=== PATIENT | female | born 1950 | race Caucasian/White ===

== ENCOUNTER → 2018-01-04 | Outpatient (CLI) | payer OTHER ==
[~2018-01-04] MED LIST: ALBU90OI; ALBU90OI61 INH; AMIT50 PO; ASPI325 PO; ASPI81CH PO; ASPI81EC PO; ATOR40TA PO; BUPR150ER; BUPR150ER PO; BUSP10 PO; Budeprion Xl300 MG PO; CIPR500 PO; CLON.5; CLON1 PO; CRUTCH2 USE; CRUTCH4 USE; Cholestyramine378 GM PO; ESTR2 PO; ESTROVAN; FENO145 PO; FLUO20 PO; FLUSAL5005; FLUSAL5005 INH; FLUT.05NI; FOLI400 PO; FURO40 PO; HYDACE5; HYDACE5 PO; HYDCHL25 PO; Klonopin1 MG PO; LISI5; LISI5 PO; METO25 PO; METO25ER PO; MONT10T; MULVITMIND PO; NAPR500 PO; NIFE30ER PO; Nitrostat0.3 MG SL; OXYACE5T PO; PHENA200 PO; Prilosec Otc20 MG PO; Pristiq100 MG PO; Prozac40 MG PO; REXULTI1 MG PO; ROSU10TA PO; RXHYDACE PO; RXOXYACE PO; Singulair10 MG PO; TOVIAZ; TRAM50 PO; VENL150ER PO; VENL75ER
[2018-01-04 14:08] LABS: BASOPHILS ABSOLUTE AUTO 0.03 K/mm3 (0.00-0.23); BASOPHILS PERCENT AUTO 0 % (0-2); EOSINOPHILS PERCENT AUTO 1 % (0-6); Hematocrit 41.5 % (33.0-51.0); Hemoglobin 13.5 g/dL (11.5-16.0); IMMATURE GRAN ABSOLUTE AUTO 0.03 K/mm3 (0.00-0.10); IMMATURE GRAN PERCENT AUTO 0 % (0-1); LYMPHOCYTES PERCENT AUTO 30 % (21-46); MONOCYTES ABSOLUTE AUTO 0.73 K/mm3 (0.16-1.47); MONOCYTES PERCENT AUTO 7 % (4-13); Mean Corpuscular HGB 28.9 pg (26.0-34.0); Mean Corpuscular HGB Conc 32.5 g/dL (31.5-36.5); Mean Corpuscular Volume 89 fL (80-100); Mean Platelet Volume 11.1 fL (9.1-12.4); NEUTROPHILS ABSOLUTE AUTO 6.71 K/mm3 (1.96-9.15); NEUTROPHILS PERCENT AUTO 62 % (41-73); Platelet Count 316 K/mm3 (150-400); RDW Coefficient Variation 13.9 % (11.7-14.2); RDW Standard Deviation 45.1 fL (35.1-46.3); Red Blood Cell Count 4.67 M/mm3 (3.80-5.20)
[2018-01-04 14:20] LABS: Alanine Aminotransfer (ALT/SGP 30 U/L (12-78); Albumin, Blood 3.7 g/dL (3.4-5.0); Albumin/Globulin Ratio 1.1 (0.8-1.8); Alk Phos 84 U/L (40-126); Anion Gap 8 mmol/L (6-16); Aspartate Aminotrans (AST/SGOT 22 U/L (12-37); Bilirubin, Total 0.4 mg/dL (0.1-1.0); Blood Urea Nitrogen 10 mg/dL (8-24); Bun/Creatinine Ratio 12.7 (12.0-20.0); CO2, Blood 28 mmol/L (21-32); Calcium, Blood 8.8 mg/dL (8.5-10.1); Chloride, Blood 104 mmol/L (98-108); Creatinine, Blood 0.79 mg/dL (0.40-1.00); Globulin, Blood 3.5 g/dL (2.2-4.0); Glomerular Filtration Rate >60 (60-); Glucose, Blood 109 mg/dL (70-99); Potassium, Blood 3.9 mmol/L (3.5-5.5); Sodium, Blood 140 mmol/L (136-145); Total Protein, Blood 7.2 g/dL (6.4-8.2)
[2018-01-04 14:23] LABS: Troponin I <0.017 ng/mL (0.000-0.040)
== END | disposition home or self-care (01) ==
LOC: LAB EV 14:04 → LAB SHORT 14:04
PROVIDERS: Physician Assistant
DX: R07.89 Other chest pain (principal)
CPT/HCPCS: 80053; 84484; 85025

== ENCOUNTER 2018-01-05 16:29 | Emergency (ER) | payer OTHER ==
[~2018-01-05] VITALS: Ht 167.6 cm; Wt 103.0 kg
[2018-01-05 16:52] LABS: BASOPHILS ABSOLUTE AUTO 0.07 K/mm3 (0.00-0.23); BASOPHILS PERCENT AUTO 1 % (0-2); EOSINOPHILS ABSOLUTE AUTO 0.15 K/mm3 (0.00-0.68); EOSINOPHILS PERCENT AUTO 1 % (0-6); Hematocrit 42.5 % (33.0-51.0); Hemoglobin 13.4 g/dL (11.5-16.0); IMMATURE GRAN ABSOLUTE AUTO 0.02 K/mm3 (0.00-0.10); IMMATURE GRAN PERCENT AUTO 0 % (0-1); LYMPHOCYTES ABSOLUTE AUTO 4.59 K/mm3 (0.84-5.20); LYMPHOCYTES PERCENT AUTO 39 % (21-46); MONOCYTES ABSOLUTE AUTO 1.06 K/mm3 (0.16-1.47); MONOCYTES PERCENT AUTO 9 % (4-13); Mean Corpuscular HGB 28.7 pg (26.0-34.0); Mean Corpuscular HGB Conc 31.5 g/dL (31.5-36.5); Mean Corpuscular Volume 91 fL (80-100); Mean Platelet Volume 10.7 fL (9.1-12.4); NEUTROPHILS ABSOLUTE AUTO 6.02 K/mm3 (1.96-9.15); NEUTROPHILS PERCENT AUTO 51 % (41-73); Platelet Count 314 K/mm3 (150-400); RDW Coefficient Variation 13.6 % (11.7-14.2); RDW Standard Deviation 45.6 fL (35.1-46.3); Red Blood Cell Count 4.67 M/mm3 (3.80-5.20); White Blood Cell Count 11.91 K/mm3 (4.00-11.30)
[2018-01-05 17:19] LABS: Alanine Aminotransfer (ALT/SGP 26 U/L (12-78); Albumin, Blood 3.5 g/dL (3.4-5.0); Alk Phos 84 U/L (50-136); Anion Gap 7 mmol/L (6-16); Aspartate Aminotrans (AST/SGOT 19 U/L (12-37); Bilirubin, Total 0.4 mg/dL (0.1-1.0); Blood Urea Nitrogen 9 mg/dL (8-24); Bun/Creatinine Ratio 12.4 (12.0-20.0); CO2, Blood 27 mmol/L (21-32); Calcium, Blood 8.6 mg/dL (8.5-10.1); Chloride, Blood 104 mmol/L (98-108); Creatinine, Blood 0.73 mg/dL (0.40-1.00); Globulin, Blood 3.4 g/dL (2.2-4.0); Glomerular Filtration Rate >60 (60-); Glucose, Blood 99 mg/dL (70-99); Potassium, Blood 3.8 mmol/L (3.5-5.5); Sodium, Blood 138 mmol/L (136-145); Total Protein, Blood 6.9 g/dL (6.4-8.2)
== END 2018-01-05 19:40 | disposition short-term general hospital (02) ==
LOC: ER 16:29
PROVIDERS: Emergency Medicine
DX: R51 Headache (principal); I10 Essential (primary) hypertension; I25.2 Old myocardial infarction; E78.5 Hyperlipidemia, unspecified; Z88.0 Allergy status to penicillin; Z88.2 Allergy status to sulfonamides; Z88.8 Allergy status to other drugs, medicaments and biological substances; Z88.1 Allergy status to other antibiotic agents; Z79.899 Other long term (current) drug therapy; Z79.82 Long term (current) use of aspirin; Z79.51 Long term (current) use of inhaled steroids; Z87.891 Personal history of nicotine dependence
CPT/HCPCS: 36415; 70450; 80053; 85025; 96374; 96375; 99285-25; J1100; J2405; J3010

== ENCOUNTER → 2018-06-07 | Outpatient (CLI) | payer OTHER ==
[2018-06-07 08:02] LABS: BASOPHILS ABSOLUTE AUTO 0.05 K/mm3 (0.00-0.23); BASOPHILS PERCENT AUTO 1 % (0-2); EOSINOPHILS ABSOLUTE AUTO 0.11 K/mm3 (0.00-0.68); EOSINOPHILS PERCENT AUTO 1 % (0-6); Hematocrit 42.3 % (33.0-51.0); Hemoglobin 13.8 g/dL (11.5-16.0); IMMATURE GRAN ABSOLUTE AUTO 0.02 K/mm3 (0.00-0.10); IMMATURE GRAN PERCENT AUTO 0 % (0-1); LYMPHOCYTES ABSOLUTE AUTO 2.83 K/mm3 (0.84-5.20); LYMPHOCYTES PERCENT AUTO 32 % (21-46); MONOCYTES ABSOLUTE AUTO 0.54 K/mm3 (0.16-1.47); MONOCYTES PERCENT AUTO 6 % (4-13); Mean Corpuscular HGB 28.8 pg (26.0-34.0); Mean Corpuscular HGB Conc 32.6 g/dL (31.5-36.5); Mean Corpuscular Volume 88 fL (80-100); Mean Platelet Volume 11.2 fL (9.1-12.4); NEUTROPHILS ABSOLUTE AUTO 5.31 K/mm3 (1.96-9.15); NEUTROPHILS PERCENT AUTO 60 % (41-73); Platelet Count 287 K/mm3 (150-400); RDW Standard Deviation 42.2 fL (35.1-46.3); Red Blood Cell Count 4.79 M/mm3 (3.80-5.20); White Blood Cell Count 8.86 K/mm3 (4.00-11.30)
[2018-06-07 08:16] LABS: Albumin, Blood 3.2 g/dL (3.4-5.0); Albumin/Globulin Ratio 0.9 (0.8-1.8); Bilirubin, Total 0.4 mg/dL (0.1-1.0); Bun/Creatinine Ratio 9.5 (12.0-20.0); Calcium, Blood 8.4 mg/dL (8.5-10.1); Creatinine, Blood 0.95 mg/dL (0.40-1.00); Globulin, Blood 3.4 g/dL (2.2-4.0); Potassium, Blood 3.9 mmol/L (3.5-5.5); Total Protein, Blood 6.6 g/dL (6.4-8.2)
== END | disposition home or self-care (01) ==
LOC: LAB SHORT 07:58 → LAB EV 07:58
PROVIDERS: General Practice
DX: R31.9 Hematuria, unspecified (principal)
CPT/HCPCS: 80053; 85025; 87086

== ENCOUNTER 2018-06-20 09:57 | Day surgery (SDC) | payer OTHER ==
[~2018-06-20] VITALS: Ht 167.6 cm; Wt 97.1 kg
--- NOTE | 2018-06-20 10:47 | NUR ---
Ambulatory in Day Surgery History, Chart, Medications and Allergies reviewed before start of procedure.Lungs clear T/O to Auscultation. Patient confirms NPO status and agrees with scheduled surgery. Patient States Post-Procedure ride home has been arranged.
--- NOTE | 2018-06-20 11:18 | NUR ---
06/20/18 1118 Diego Sewell History, Chart, Medications and Allergies reviewed before start of procedure.MONITOR INTACT WITH CONTINUOUS PULSE OXIMETRY AND INTERMITTENT BP.3-LEAD EKG REVIEWED WITH PHYSICIAN PRIOR TO START OF PROCEDURE.O2 VIA N/C INTACT THROUGHOUT SEDATION/PROCEDURE. Patient confirms NPO status and agrees with scheduled surgery.PATIENT DETERMINED TO BE ASA APPROPRIATE FOR PROPOFOL SEDATION PRIOR TO START OF PROCEDURE BY DR. BUCK.
--- NOTE | 2018-06-20 12:23 | NUR ---
Patient up to Ambulate independently. Gait steady. Discharge instructions reviewed with patient. Patient verbalizes understanding. Copy given to patient to take home. Patient States Post-Procedure ride home has been arranged. Discharged via wheelchair to private car for ride home.
== END 2018-06-20 12:00 | disposition home or self-care (01) ==
LOC: ORSCMMR 09:57 → ORD 11:00 → ORSCMMR 12:00
PROVIDERS: Internal Medicine Gastroenterology
PROC: 0DBM8ZX Excision of Descending Colon, Via Natural or Artificial Opening Endoscopic, Diagnostic (ICD-10-PCS; principal; 2018-06-20 11:00)
PROC: 0DBP8ZX Excision of Rectum, Via Natural or Artificial Opening Endoscopic, Diagnostic (ICD-10-PCS; principal; 2018-06-20 11:00)
PROC: 0DBL8ZX Excision of Transverse Colon, Via Natural or Artificial Opening Endoscopic, Diagnostic (ICD-10-PCS; principal; 2018-06-20 11:00)
PROC: 0DBE8ZX Excision of Large Intestine, Via Natural or Artificial Opening Endoscopic, Diagnostic (ICD-10-PCS; principal; 2018-06-20 11:00)
DX: R19.7 Diarrhea, unspecified (principal); Z86.010 Personal history of colon polyps; D12.3 Benign neoplasm of transverse colon; K63.5 Polyp of colon; K62.1 Rectal polyp; K52.89 Other specified noninfective gastroenteritis and colitis; E11.9 Type 2 diabetes mellitus without complications; I25.10 Atherosclerotic heart disease of native coronary artery without angina pectoris; I25.2 Old myocardial infarction; Z79.899 Other long term (current) drug therapy; Z79.82 Long term (current) use of aspirin; F17.210 Nicotine dependence, cigarettes, uncomplicated
CPT/HCPCS: 82947; J7120

== ENCOUNTER → 2018-08-27 | Outpatient (CLI) | payer OTHER | END | disposition home or self-care (01) | LOC: LAB SHORT 14:19 → LAB 14:19 | DX: N20.0 Calculus of kidney (principal) | CPT/HCPCS: 81050 ==

== ENCOUNTER → 2019-02-14 | Outpatient (CLI) | payer OTHER | END | disposition home or self-care (01) | LOC: LAB SHORT 17:35 → LAB 17:35 | DX: R30.9 Painful micturition, unspecified (principal) | CPT/HCPCS: 87077; 87086; 87186 ==

== ENCOUNTER → 2019-02-27 | Outpatient (CLI) | payer OTHER ==
[2019-03-05 14:07] LABS: BRUSHITE 1.01 ratio (0.00-3.00); CALCIUM OXALATE 2.48 ratio (0.00-6.00); CALCIUM, URINE 7.9 mg/dL (Not Estab.); CHLORIDE URINE 132 (110-250); CITRIC ACID (CITRATE) 94 mg/L (Not Estab.); CITRIC ACID(CITRATE) 188 mg/24 hr (320-1240); CREATININE, URINE 48.7 mg/dL (Not Estab.); MAGNESIUM, URINE 1.8 mg/dL (Not Estab.); MONOSODIUM URATE 2.02 ratio (0.00-4.00); OSMOLALITY, URINE 334 (300-900); SODIUM, URINE 150 (39-258); SODIUM, URINE 75 mmol/L (Not Estab.); STRUVITE 0.01 ratio (0.00-1.00); URIC ACID 0.53 ratio (0.00-1.20); URINE VOLUME 2000 mL/24 hr (600-1600); URINE VOLUME (PRESERVATIVE) 2000 mL/24 hr (600-1600)
== END | disposition home or self-care (01) ==
LOC: LAB 11:47 → LAB SHORT 11:47
PROVIDERS: Urology
DX: N20.0 Calculus of kidney (principal)
CPT/HCPCS: 81003; 81050; 82131; 82140; 82340; 82436; 82507; 82570; 83735; 83935; 83945; 84105; 84133; 84300; 84392; 84560

== ENCOUNTER 2020-08-03 21:17 | Emergency (ER) | payer OTHER ==
[~2020-08-03] VITALS: Ht 167.6 cm; Wt 89.8 kg
[~2020-08-03 21:17] MED LIST changes: +ENAL2.5 PO; +MELATONIN5 M1 PO; +OMEP20ER PO; +Percocet 5-3251 EACH PO; +REXULTI2 MG PO
== END 2020-08-03 21:30 | disposition home or self-care (01) ==
LOC: ER 21:17
DX: T16.2XXA Foreign body in left ear, initial encounter (principal); I10 Essential (primary) hypertension; E78.00 Pure hypercholesterolemia, unspecified; Z88.2 Allergy status to sulfonamides; Z79.899 Other long term (current) drug therapy; Z87.891 Personal history of nicotine dependence; Z88.8 Allergy status to other drugs, medicaments and biological substances
CPT/HCPCS: 69200; 99282-25

== ENCOUNTER → 2020-11-16 | Outpatient (CLI) | payer OTHER ==
[2020-11-16 11:41] LABS: Creatinine, Urine Random 97.8 mg/dL (27.00-270.00); Microalb/Creat Ratio UR, Rand 12.781 mg/g (0.000-30.000); Microalbumin, Random Urine 12.5 mg/L (0.000-20.000)
== END | disposition home or self-care (01) ==
LOC: LAB SHORT 08:10 → LAB 08:10
PROVIDERS: Student in an Organized Health Care Education/Training Program
DX: E11.40 Type 2 diabetes mellitus with diabetic neuropathy, unspecified (principal)
CPT/HCPCS: 82043; 82570

== ENCOUNTER 2021-08-10 18:22 | Inpatient (IN) | payer OTHER ==
[~2021-08-10] VITALS: Ht 167.6 cm; Wt 92.5 kg
[~2021-08-10 18:22] MED LIST changes: +CLON2 PO; -FLUSAL5005 INH; +FLUT1DIS5 INH
[2021-08-10 19:09] LABS: BASOPHILS ABSOLUTE AUTO 0.05 K/mm3 (0.00-0.23); BASOPHILS PERCENT AUTO 0 % (0-2); EOSINOPHILS ABSOLUTE AUTO 0.01 K/mm3 (0.00-0.68); EOSINOPHILS PERCENT AUTO 0 % (0-6); Hematocrit 38.6 % (33.0-51.0); Hemoglobin 12.3 g/dL (11.5-16.0); IMMATURE GRAN ABSOLUTE AUTO 0.08 K/mm3 (0.00-0.10); IMMATURE GRAN PERCENT AUTO 1 % (0-1); LYMPHOCYTES ABSOLUTE AUTO 1.66 K/mm3 (0.84-5.20); LYMPHOCYTES PERCENT AUTO 10 % (21-46); MONOCYTES ABSOLUTE AUTO 0.79 K/mm3 (0.16-1.47); MONOCYTES PERCENT AUTO 5 % (4-13); Mean Corpuscular HGB 28.5 pg (26.0-34.0); Mean Corpuscular HGB Conc 31.9 g/dL (31.5-36.5); Mean Corpuscular Volume 89 fL (80-100); Mean Platelet Volume 10.8 fL (9.1-12.4); NEUTROPHILS ABSOLUTE AUTO 13.88 K/mm3 (1.96-9.15); NEUTROPHILS PERCENT AUTO 84 % (41-73); Platelet Count 258 K/mm3 (150-400); RDW Coefficient Variation 13.6 % (11.7-14.2); RDW Standard Deviation 44.8 fL (35.1-46.3); Red Blood Cell Count 4.32 M/mm3 (3.80-5.20); White Blood Cell Count 16.47 K/mm3 (4.00-11.30)
[2021-08-10 19:40] LABS: Albumin, Blood 3.1 g/dL (3.4-5.0); Albumin/Globulin Ratio 0.8 (0.8-1.8); Bilirubin, Total 1.2 mg/dL (0.1-1.0); Bun/Creatinine Ratio 16.5 (12.0-20.0); Calcium, Blood 8.4 mg/dL (8.5-10.1); Creatinine, Blood 0.97 mg/dL (0.40-1.00); Globulin, Blood 3.8 g/dL (2.2-4.0); Potassium, Blood 3.4 mmol/L (3.5-5.5); Total Protein, Blood 6.9 g/dL (6.4-8.2)
[2021-08-10 23:12] LABS: Source, Urine Clean Catch
[2021-08-10 23:23] LABS: Bilirubin, Urine Neg (Neg); Blood, Urine 4+ (Neg); Glucose Qualitative, Urine Neg (Neg); Ketones, Urine Neg (Neg); Leukocyte Esterase, Urine 3+ (Neg); Nitrite, Urine Pos (Neg); Protein, Urine 2+ (Neg); Urobilinogen, Urine 1+ (Normal)
[2021-08-10 23:28] LABS: Appearance, Urine Hazy (Clear); Color, Urine Yellow (P-Yellow)
[2021-08-10 23:44] LABS: Bacteria Many /hpf; Red Blood Cells, Urine 0-2 /hpf (0-2); Squamous Epithelial Cells Few /hpf (Few); White Blood Cells, Urine TNTC /hpf (0-5)
[2021-08-11 05:49] LABS: BASOPHILS ABSOLUTE AUTO 0.04 K/mm3 (0.00-0.23); BASOPHILS PERCENT AUTO 0 % (0-2); EOSINOPHILS ABSOLUTE AUTO 0.01 K/mm3 (0.00-0.68); EOSINOPHILS PERCENT AUTO 0 % (0-6); Hematocrit 35.5 % (33.0-51.0); Hemoglobin 11.3 g/dL (11.5-16.0); IMMATURE GRAN ABSOLUTE AUTO 0.06 K/mm3 (0.00-0.10); IMMATURE GRAN PERCENT AUTO 1 % (0-1); LYMPHOCYTES ABSOLUTE AUTO 0.99 K/mm3 (0.84-5.20); LYMPHOCYTES PERCENT AUTO 8 % (21-46); MONOCYTES ABSOLUTE AUTO 1.28 K/mm3 (0.16-1.47); MONOCYTES PERCENT AUTO 10 % (4-13); Mean Corpuscular HGB Conc 31.8 g/dL (31.5-36.5); Mean Corpuscular Volume 88 fL (80-100); Mean Platelet Volume 11.1 fL (9.1-12.4); NEUTROPHILS ABSOLUTE AUTO 10.49 K/mm3 (1.96-9.15); NEUTROPHILS PERCENT AUTO 82 % (41-73); Platelet Count 228 K/mm3 (150-400); RDW Coefficient Variation 13.7 % (11.7-14.2); RDW Standard Deviation 44.3 fL (35.1-46.3); Red Blood Cell Count 4.03 M/mm3 (3.80-5.20); White Blood Cell Count 12.87 K/mm3 (4.00-11.30)
[2021-08-11 06:11] LABS: Alanine Aminotransfer (ALT/SGP 24 U/L (12-78); Albumin, Blood 2.7 g/dL (3.4-5.0); Albumin/Globulin Ratio 0.8 (0.8-1.8); Alk Phos 75 U/L (50-136); Anion Gap 8 mmol/L (6-16); Aspartate Aminotrans (AST/SGOT 20 U/L (12-37); Bilirubin, Total 1.3 mg/dL (0.1-1.0); Blood Urea Nitrogen 14 mg/dL (8-24); CO2, Blood 23 mmol/L (21-32); Chloride, Blood 108 mmol/L (98-108); Creatinine, Blood 0.87 mg/dL (0.40-1.00); Globulin, Blood 3.3 g/dL (2.2-4.0); Glomerular Filtration Rate >60 (60-); Glucose, Blood 106 mg/dL (70-99); Sodium, Blood 139 mmol/L (136-145)
--- NOTE | 2021-08-11 11:48 | NUR ---
MD CALL BLOOD SUGAR 66. PT BEING GIVEN JUICE AND SNACK. DR LORENZO INFORMED OF BG.
[2021-08-11] MEDS ORDERED: Mirapex1 MG PO (12:16)
[2021-08-11] MEDS ORDERED: CARBIDOPA-LEVO1 EA15 PO (12:17)
[2021-08-11] MEDS ORDERED: DESV50 PO (12:18)
[2021-08-11] MEDS ORDERED: REXULTI2 MG PO (12:19)
[2021-08-11] MEDS ORDERED: Ventolin/Prove6.7 GM INH (13:08)
[2021-08-11] MEDS ORDERED: Zestril30 MG PO (13:11)
--- NOTE | 2021-08-11 18:27 | NUR ---
MS TURNER WAS ADMITTED TO MEDICAL FLOOR FROM THE ER JUST BEFORE NOON TODAY. SHE IS ALERT, ORIENTATED X 4. SHE HAS HISTORY OF ASTHMA AND SLEEP APNEA. ON ROOM AIR, NO RESP DISTRESS. NO C/O PAIN. ABDOMEN ROUND, SOFT, NONTENDER. SHE SAID SHE HAS CHRONIC DIARRHEA, SHE HAS HAD A COUPLE OF SMALL FORMED STOOLS SINCE ADMISSION. SHE HAS PARKINSONS DISEASE WITH PRONOUNCED TREMORS. OYSTERMAN PADS PLACED ON HER BACK RATHER THAN HER CHEST TO FURNACE CHARGING MACHINE OPERATOR A BETTER WAVE FORM. PT IN SR/ST WITH PVCS PER MAGNET VALVE ASSEMBLER. TRAMMELL CATHETER IN PLACE FOR URINARY RETENTION. SCD ON. PIV TO L AND R A/C, NS IVF INFUSING TO R A/C. PT FEBRILE, TYLENOL PO GIVEN. DR LORENZO AWARE AND SHE HAS BEEN IN TO SEE PT. PT HAS HAD RECENT FALLS AT HOME AND IS WEAK. SHE SAID SHE NEEDS A LOT OF ASSISTANCE TO GET UP OUT OF BED. SEEN BY PHYSICAL THERAPY (OT ALSO CAME TO SEE HER) AND MESSAGE LEFT FOR IT GENERALIST TO EVALUATE HER FOR INCREASED HOME CARE NEEDS, POSSIBLE HOME CARE NURSES. BED LOW. CALL LIGHT IN REACH. FAMILY HAS BEEN WITH HER TODAY.
--- NOTE | 2021-08-12 02:16 | NUR ---
PT TRANSFERRED TO 331 AT 0200 FROM 345. REPORT TAKEN FROM DAVID PATHAK. PT TUCKED IN, FLUIDS CHANGED, AND TRAMMELL BAG EMPTIED. PT HAS CALL LIGHT WITHIN REACH AND STS SHE IS READY TO GO BACK TO SLEEP. LIGHT TURNED OUT AND WILL CONTINUE TO MONITOR.
[2021-08-12 05:24] LABS: Hematocrit 37.3 % (33.0-51.0); Hemoglobin 11.5 g/dL (11.5-16.0); Mean Corpuscular HGB 28.1 pg (26.0-34.0); Mean Corpuscular HGB Conc 30.8 g/dL (31.5-36.5); Mean Corpuscular Volume 91 fL (80-100); Mean Platelet Volume 10.8 fL (9.1-12.4); Platelet Count 219 K/mm3 (150-400); RDW Coefficient Variation 13.5 % (11.7-14.2); Red Blood Cell Count 4.09 M/mm3 (3.80-5.20); White Blood Cell Count 7.55 K/mm3 (4.00-11.30)
[2021-08-12 05:59] LABS: Albumin, Blood 2.6 g/dL (3.4-5.0); Anion Gap 9 mmol/L (6-16); Blood Urea Nitrogen 16 mg/dL (8-24); Bun/Creatinine Ratio 18.7 (12.0-20.0); CO2, Blood 20 mmol/L (21-32); Calcium, Blood 7.9 mg/dL (8.5-10.1); Chloride, Blood 108 mmol/L (98-108); Creatinine, Blood 0.85 mg/dL (0.40-1.00); Glomerular Filtration Rate >60 (60-); Glucose, Blood 92 mg/dL (70-99); Phosphorus, Blood 2.6 mg/dL (2.5-4.9); Sodium, Blood 137 mmol/L (136-145)
--- NOTE | 2021-08-12 18:30 | NUR ---
SHIFT SUMMARY: PT ADMITTED YESTERDAY WITH PYELONEPHRITIS AND SEPSIS. SHE IS A/O X4. THE PATIENT IS ON ROOM AIR AND IS IN NO RESPIRATORY DISTRESS. SHE HAS PARKINSON'S DISEASE WITH PRONOUNCED TREMORS IN BOTH HANDS. TELEMETRY STICKERS WERE PLACED ON HER BACK VS. CHEST DUE TO HER TREMORS. TELEMETRY HAS SINCE BEEN DC'D PER ORDER. THE PATIENT HAD A TRAMMELL CATHETER IN PLACE FOR RETENTION, BUT THE TRAMMELL CATHETER HAS BEEN REMOVED PER ORDER. PATIENT IS STAND BY ASSIST AND AMBULATES TO THE BATHROOM WITH FWW. BED IN LOW POSITION. CALL LIGHT IN REACH. FAMILY HAS BEEN IN TO VISIT WITH PATIENT TODAY.
--- NOTE | 2021-08-13 05:57 | NUR ---
SHIFT SUMMARY A/O X4. AMBULATION W/ SBA AND FWW. VITAL SIGNS STABLE, NO ACUTE CHANGES OVER NIGHT. PT TOLERATING PO INTAKE, NO N/V REPORTED. VOIDING AND PASSING STOOLS. PLEASANT AND COOPERATIVE WITH CARE, WILL CONTINUE TO MONITOR AND REPORT TO ONCOMING RN.
[2021-08-13] MEDS ORDERED: VISBIOME 112.51 EACH PO (11:07)
[2021-08-13] MEDS ORDERED: LEVO750 PO (11:09)
== END 2021-08-13 12:07 | disposition home health service (06) | DRG 872 ==
LOC: ER 18:22 → ERHOLD 08-11 00:39 → ER 08-11 00:39 → MEDS 08-11 00:39 → ERHOLD 08-11 04:53 → MEDS 08-11 10:56
PROVIDERS: Family Medicine; Internal Medicine; Student in an Organized Health Care Education/Training Program; ADMIT Internal Medicine
DX: A41.51 Sepsis due to Escherichia coli [E. coli] (principal); N10 Acute pyelonephritis; E87.1 Hypo-osmolality and hyponatremia; E87.6 Hypokalemia; I25.10 Atherosclerotic heart disease of native coronary artery without angina pectoris; Z95.5 Presence of coronary angioplasty implant and graft; Z95.1 Presence of aortocoronary bypass graft; E11.9 Type 2 diabetes mellitus without complications; I10 Essential (primary) hypertension; G20 Parkinson's disease; F32.9 Major depressive disorder, single episode, unspecified; F41.9 Anxiety disorder, unspecified; K21.9 Gastro-esophageal reflux disease without esophagitis; R65.20 Severe sepsis without septic shock; Z79.899 Other long term (current) drug therapy; I25.2 Old myocardial infarction; Z90.49 Acquired absence of other specified parts of digestive tract; Z88.2 Allergy status to sulfonamides; Z88.1 Allergy status to other antibiotic agents; Z88.0 Allergy status to penicillin; Z88.8 Allergy status to other drugs, medicaments and biological substances; Z79.82 Long term (current) use of aspirin; J44.9 Chronic obstructive pulmonary disease, unspecified
CPT/HCPCS: 36415; 51702; 51798; 74177; 80053; 80069; 81001; 82947; 83605; 85025; 85027; 87040; 87077; 87086; 87186; 94640; 94664; 94760; 94762; 97110; 97116; 97162; 97166; 97530; 97535; 99285-25; A9270; J0744; J1650; J1956; J7030; Q9967

== ENCOUNTER → 2022-03-16 | Outpatient (CLI) | payer OTHER ==
[~2022-03-16] MED LIST changes: +CARBIDOPA-LEVO1 EA15 PO; +DESV50 PO; +LEVO750 PO; +Mirapex1 MG PO; +VISBIOME 112.51 EACH PO; +Ventolin/Prove6.7 GM INH; +Zestril30 MG PO
[2022-03-16 14:17] LABS: Source, Urine Clean Catch
[2022-03-16 15:35] LABS: Bacteria Many /hpf; Red Blood Cells, Urine 0-2 /hpf (0-2); Squamous Epithelial Cells Few /hpf (Few)
== END | disposition home or self-care (01) ==
LOC: LAB 14:16 → LAB SHORT 14:16
PROVIDERS: Student in an Organized Health Care Education/Training Program
DX: R32 Unspecified urinary incontinence (principal)
CPT/HCPCS: 81015; 87077; 87086; 87186

== ENCOUNTER 2022-11-07 08:25 | Emergency (ER) | payer OTHER ==
[~2022-11-07] VITALS: Ht 167.6 cm; Wt 96.2 kg
[2022-11-07 08:53] LABS: BASOPHILS ABSOLUTE AUTO 0.06 K/mm3 (0.00-0.23); BASOPHILS PERCENT AUTO 1 % (0-2); EOSINOPHILS ABSOLUTE AUTO 0.18 K/mm3 (0.00-0.68); EOSINOPHILS PERCENT AUTO 2 % (0-6); Hematocrit 39.9 % (33.0-51.0); Hemoglobin 13.1 g/dL (11.5-16.0); IMMATURE GRAN ABSOLUTE AUTO 0.03 K/mm3 (0.00-0.10); IMMATURE GRAN PERCENT AUTO 0 % (0-1); LYMPHOCYTES ABSOLUTE AUTO 1.98 K/mm3 (0.84-5.20); LYMPHOCYTES PERCENT AUTO 25 % (21-46); MONOCYTES ABSOLUTE AUTO 0.57 K/mm3 (0.16-1.47); MONOCYTES PERCENT AUTO 7 % (4-13); Mean Corpuscular HGB 28.1 pg (26.0-34.0); Mean Corpuscular HGB Conc 32.8 g/dL (31.5-36.5); Mean Corpuscular Volume 86 fL (80-100); Mean Platelet Volume 11.2 fL (9.1-12.4); NEUTROPHILS ABSOLUTE AUTO 5.14 K/mm3 (1.96-9.15); NEUTROPHILS PERCENT AUTO 64 % (41-73); Platelet Count 306 K/mm3 (150-400); RDW Coefficient Variation 14.6 % (11.7-14.2); RDW Standard Deviation 45.2 fL (35.1-46.3); Red Blood Cell Count 4.66 M/mm3 (3.80-5.20); White Blood Cell Count 7.96 K/mm3 (4.00-11.30)
[2022-11-07 09:11] LABS: Albumin, Blood 3.7 g/dL (3.4-5.0); Albumin/Globulin Ratio 1.2 (0.8-1.8); Bilirubin, Total 0.7 mg/dL (0.1-1.0); Bun/Creatinine Ratio 20.6 (12.0-20.0); Calcium, Blood 9.2 mg/dL (8.5-10.1); Creatinine, Blood 0.92 mg/dL (0.40-1.00); Globulin, Blood 3.2 g/dL (2.2-4.0); Potassium, Blood 4.9 mmol/L (3.5-5.5); Total Protein, Blood 6.9 g/dL (6.4-8.2)
[2022-11-07 10:53] VITALS: BP 101/67
== END 2022-11-07 11:31 | disposition home or self-care (01) ==
LOC: ER 08:25
PROVIDERS: Physician Assistant
DX: R55 Syncope and collapse (principal); Z88.2 Allergy status to sulfonamides; Z88.1 Allergy status to other antibiotic agents; Z88.0 Allergy status to penicillin; Z88.8 Allergy status to other drugs, medicaments and biological substances; Z79.899 Other long term (current) drug therapy; Z79.82 Long term (current) use of aspirin; I10 Essential (primary) hypertension; I25.10 Atherosclerotic heart disease of native coronary artery without angina pectoris; E78.5 Hyperlipidemia, unspecified; Z87.891 Personal history of nicotine dependence
CPT/HCPCS: 70450; 71045; 72125; 73060; 80053; 83880; 85025; 93005; 93010; 96361; 96374; 99285-25; J1885; J7030

== ENCOUNTER → 2022-12-09 | Outpatient (CLI) | payer OTHER ==
[2022-12-09 11:09] LABS: BASOPHILS ABSOLUTE AUTO 0.03 K/mm3 (0.00-0.23); BASOPHILS PERCENT AUTO 1 % (0-2); EOSINOPHILS PERCENT AUTO 0 % (0-6); Hematocrit 40.4 % (33.0-51.0); Hemoglobin 13.4 g/dL (11.5-16.0); IMMATURE GRAN ABSOLUTE AUTO 0.02 K/mm3 (0.00-0.10); IMMATURE GRAN PERCENT AUTO 0 % (0-1); LYMPHOCYTES ABSOLUTE AUTO 1.77 K/mm3 (0.84-5.20); LYMPHOCYTES PERCENT AUTO 27 % (21-46); MONOCYTES ABSOLUTE AUTO 0.89 K/mm3 (0.16-1.47); MONOCYTES PERCENT AUTO 14 % (4-13); Mean Corpuscular HGB 28.4 pg (26.0-34.0); Mean Corpuscular HGB Conc 33.2 g/dL (31.5-36.5); Mean Corpuscular Volume 86 fL (80-100); Mean Platelet Volume 11.2 fL (9.1-12.4); NEUTROPHILS ABSOLUTE AUTO 3.84 K/mm3 (1.96-9.15); NEUTROPHILS PERCENT AUTO 59 % (41-73); Platelet Count 276 K/mm3 (150-400); Red Blood Cell Count 4.72 M/mm3 (3.80-5.20); White Blood Cell Count 6.55 K/mm3 (4.00-11.30)
[2022-12-09 11:13] LABS: Bun/Creatinine Ratio 19.2 (12.0-20.0); Calcium, Blood 9.1 mg/dL (8.5-10.1); Creatinine, Blood 1.3 mg/dL (0.40-1.00)
== END ==
LOC: LAB SHORT 11:02 → LAB 11:02
PROVIDERS: Physician Assistant Surgical
DX: R07.9 Chest pain, unspecified (principal)
CPT/HCPCS: 80048; 84484; 85025; 85379

== ENCOUNTER 2023-01-17 08:51 | Day surgery (SDC) | payer OTHER ==
[2023-01-17] VITALS (12 sets, daily range): BP systolic 102–167; BP diastolic 51–94
[~2023-01-17] VITALS: Ht 167.6 cm; Wt 96.6 kg
[~2023-01-17 08:51] MED LIST changes: +AZELASTINE137 MCG/01; +ESTRADIOL PO; +LOTE.2OPSU; +MONT10T PO; +NITR.4SL SL; +POTCHL20ER PO; +Triamcinolone A15 G3
[2023-01-17] MEDS ORDERED: MELATONIN5 M1 PO (09:44)
[2023-01-17] MEDS ORDERED: GABA300 PO (09:45)
--- NOTE | 2023-01-17 09:55 | NUR ---
DR. NAGY AT BEDSIDE, VERBAL ORDER FOR PO MEDICATIONS PLACED. ANESTHESIA CONSULT REQUESTED FOR PT PRIOR TO PROCEDURE. NURSING SORT SUPERVISOR CALLED.
--- NOTE | 2023-01-17 11:00 | NUR ---
PT UP TO USE BATHROOM WITH OUT DIFFICULTY. ATTENDS CHANGED BY PATIENT. BACK TO BED, PT. FAMILY AND FRIENDS REMAIN AT BEDSIDE, CALL LIGHT IN REACH.
--- NOTE | 2023-01-17 11:41 | NUR ---
TR BAND DEFLATED PER PROTOCOL. SITE WNL AT THIS TIME. DISCHARGE INSTRUCTIONS REVIEWED WITH PT AND .
--- NOTE | 2023-01-17 14:51 | NUR ---
pt up in recliner s/p pacemaker placement. sling placed to left arm. Pt being assisted to set up pacemaker jeff, then will be transferred to Surgical floor room 214. family updated on room.
--- NOTE | 2023-01-17 15:07 | NUR ---
PATIENT ARRIVED TO THE FLOOR TODAY AT 1500. POD 0 POST PACEMAKER PATIENT IS A&OX4. VS ARE WNL AND IS ON RA. PATIENTS LEFT SHOULDER HAS X2 MEDIPORE DRESSINGS THAT ARE C/D/I AND IS ALSO IN A SLING. SHE DENIES NUMBNESS OR TINGLING IN ALL EXTREMITIES. SHE IS A SBA FOR AMBULATION. SHE IS TOLERATING SMALL AMOUNTS OF PO INTAKE. PATIENT IS LAYING IN BED WITH CALL LIGHT IN REACH.
[2023-01-18 02:54] VITALS: BP 109/60
--- NOTE | 2023-01-18 06:32 | NUR ---
SHIFT SUMMARY NOC. PT POD 1 FOR DUAL CHAMBER PACEMAKER PLACEMENT IN LEFT CHEST WALL. MEDIPORE DRESSING CLEAN, DRY, AND INTACT. LEFT ARM IN SLING. PT MEDICATED FOR PAIN WITH GOOD RELIEF. PT ON TELEMETRY WITH NO REPORTED EVENTS. PT AMBULATED TO THE BATHROOM TO VOID URINE. PT REPORTED THAT SHE TAKES HER LEVODOPA AT 0730, 1130, 1530, 1930 AND MIRAPEX AT 0730, 1230, 1930. PT REQUESTED TIMES BE CHANGED FROM DEFAULT TO HER REGULAR TIMES. CONSULTED ANIMAL CARE TAKER AND HAD TIMES CHANGED WITH PHARMACY. PT RESTED THROUGHOUT THE NIGHT WITH EYES CLOSED AND CALL LIGHT IN REACH.
[2023-01-18 07:38] VITALS: BP 114/50
--- NOTE | 2023-01-18 12:58 | NUR ---
VERIFIED WITH DR NAGY NO ABX PRESCRIPTION ORDERED FOR DC. PT RECEIVED IV ABX PER ORDERS.
[2023-01-18 13:09] VITALS: BP 144/67
--- NOTE | 2023-01-18 13:19 | NUR ---
discharged NOON ABX COMPLETED PER ORDERS. REVIEWED DC INSTRUCTIONS W/PT; VERBALIZED UNDERSTANDING. DC'D IV, CATHETER INTACT. PT LEFT UNIT IN WC W/POSSESSIONS AND DC PAPERWORK IN HAND, ACCOMPANIED BY RIDE.
== END 2023-01-18 13:23 | disposition home or self-care (01) ==
LOC: MHTC 08:51 → SURS 14:55 → MHTC 01-18 13:23
DX: I44.1 Atrioventricular block, second degree (principal); J44.9 Chronic obstructive pulmonary disease, unspecified; E78.5 Hyperlipidemia, unspecified; I12.9 Hypertensive chronic kidney disease with stage 1 through stage 4 chronic kidney disease, or unspecified chronic kidney disease; N18.9 Chronic kidney disease, unspecified; I25.10 Atherosclerotic heart disease of native coronary artery without angina pectoris; Z95.1 Presence of aortocoronary bypass graft; I25.2 Old myocardial infarction; Z86.16 Personal history of COVID-19; Z87.891 Personal history of nicotine dependence; Z88.0 Allergy status to penicillin; Z88.2 Allergy status to sulfonamides; Z88.1 Allergy status to other antibiotic agents; Z88.8 Allergy status to other drugs, medicaments and biological substances; Z79.82 Long term (current) use of aspirin; Z79.899 Other long term (current) drug therapy
CPT/HCPCS: 33208; 71045; 76937; 82947; 94760; 99152; 99153; A9270; C1785; C1898; J1644; J2250; J3010; J3370; J7030; J7040; J7050

== ENCOUNTER 2023-04-01 10:26 | Emergency (ER) | payer OTHER ==
[~2023-04-01] VITALS: Ht 167.6 cm; Wt 77.1 kg
[~2023-04-01 10:26] MED LIST changes: +GABA300 PO
[2023-04-01 11:18] LABS: BASOPHILS ABSOLUTE AUTO 0.07 K/mm3 (0.00-0.23); BASOPHILS PERCENT AUTO 1 % (0-2); EOSINOPHILS ABSOLUTE AUTO 0.12 K/mm3 (0.00-0.68); EOSINOPHILS PERCENT AUTO 2 % (0-6); Hematocrit 41.4 % (33.0-51.0); Hemoglobin 13.5 g/dL (11.5-16.0); IMMATURE GRAN ABSOLUTE AUTO 0.02 K/mm3 (0.00-0.10); IMMATURE GRAN PERCENT AUTO 0 % (0-1); LYMPHOCYTES ABSOLUTE AUTO 2.45 K/mm3 (0.84-5.20); LYMPHOCYTES PERCENT AUTO 31 % (21-46); MONOCYTES ABSOLUTE AUTO 0.58 K/mm3 (0.16-1.47); MONOCYTES PERCENT AUTO 7 % (4-13); Mean Corpuscular HGB 28.9 pg (26.0-34.0); Mean Corpuscular HGB Conc 32.6 g/dL (31.5-36.5); Mean Corpuscular Volume 89 fL (80-100); NEUTROPHILS ABSOLUTE AUTO 4.72 K/mm3 (1.96-9.15); NEUTROPHILS PERCENT AUTO 59 % (41-73); Platelet Count 306 K/mm3 (150-400); RDW Coefficient Variation 13.5 % (11.7-14.2); RDW Standard Deviation 43.7 fL (35.1-46.3); Red Blood Cell Count 4.67 M/mm3 (3.80-5.20); White Blood Cell Count 7.96 K/mm3 (4.00-11.30)
[2023-04-01 11:34] LABS: Albumin, Blood 3.6 g/dL (3.4-5.0); Bilirubin, Total 0.6 mg/dL (0.1-1.0); Bun/Creatinine Ratio 20.1 (12.0-20.0); Calcium, Blood 8.7 mg/dL (8.5-10.1); Creatinine, Blood 0.95 mg/dL (0.40-1.00); Globulin, Blood 3.5 g/dL (2.2-4.0); Potassium, Blood 3.6 mmol/L (3.5-5.5); Total Protein, Blood 7.1 g/dL (6.4-8.2)
[2023-04-01] MEDS ORDERED: CLARITIN-D 121 EAC1 PO (11:35)
[2023-04-01] MEDS ORDERED: OXYB5 PO (11:36)
[2023-04-01 11:37] LABS: Source, Urine Clean Catch
[2023-04-01] MEDS ORDERED: PAROEX473 ML MM (11:37)
[2023-04-01 11:40] LABS: Bilirubin, Urine Neg (Neg); Blood, Urine Neg (Neg); Glucose Qualitative, Urine Neg (Neg); Ketones, Urine Neg (Neg); Leukocyte Esterase, Urine 1+ (Neg); Nitrite, Urine Neg (Neg); Protein, Urine Neg (Neg); Urobilinogen, Urine NORM (Normal)
[2023-04-01 12:11] LABS: Appearance, Urine Hazy (Clear); Bacteria Few /hpf; Color, Urine Yellow (P-Yellow); Red Blood Cells, Urine Not Seen /hpf (0-2); Squamous Epithelial Cells Few /hpf (Few)
[2023-04-01] MEDS ORDERED: CEPH500 PO (13:38)
[2023-04-01 14:00] VITALS: BP 136/80
== END 2023-04-01 14:07 | disposition home or self-care (01) ==
LOC: ER 10:26
PROVIDERS: Emergency Medicine
DX: N39.0 Urinary tract infection, site not specified (principal); R53.81 Other malaise; I95.9 Hypotension, unspecified; I10 Essential (primary) hypertension; I25.2 Old myocardial infarction; I25.10 Atherosclerotic heart disease of native coronary artery without angina pectoris; E78.5 Hyperlipidemia, unspecified; Z88.0 Allergy status to penicillin; Z88.1 Allergy status to other antibiotic agents; Z88.2 Allergy status to sulfonamides; Z88.4 Allergy status to anesthetic agent; Z88.6 Allergy status to analgesic agent; Z79.51 Long term (current) use of inhaled steroids; Z79.899 Other long term (current) drug therapy; Z79.82 Long term (current) use of aspirin; Z87.891 Personal history of nicotine dependence
CPT/HCPCS: 71045; 80053; 81001; 83880; 84484; 85025; 87077; 87086; 87186; 93005; 93010; 96360; 99285-25; J7030; P9612

== ENCOUNTER → 2023-10-28 | Outpatient (CLI) | payer OTHER ==
[~2023-10-28] MED LIST changes: +CEPH500 PO; +CLARITIN-D 121 EAC1 PO; +OXYB5 PO; +PAROEX473 ML MM
[2023-10-30 20:50] LABS: SSA-52 (RO52) (ENA) AB, IGG 6 AU/mL (0-40); SSA-60 (RO60) (ENA) AB, IGG 0 AU/mL (0-40); SSB (LA) (ENA) ANTIBODY, IGG 0 AU/mL (0-40)
== END ==
LOC: LAB 11:34 → LAB SHORT 11:34
PROVIDERS: Emergency Medicine
DX: K11.7 Disturbances of salivary secretion (principal)
CPT/HCPCS: 85651; 86235; 86430

== ENCOUNTER 2024-02-15 12:11 | Emergency (ER) | payer OTHER ==
[~2024-02-15] VITALS: Ht 167.6 cm; Wt 68.5 kg
[2024-02-15 12:46] VITALS: BP 123/75
[2024-02-15] MEDS ORDERED: LIDO700A20 TOP (14:16)
== END 2024-02-15 14:30 | disposition home or self-care (01) ==
LOC: ER 12:11
DX: S20.212A Contusion of left front wall of thorax, initial encounter (principal); W22.8XXA Striking against or struck by other objects, initial encounter; I10 Essential (primary) hypertension; I25.2 Old myocardial infarction; Z87.891 Personal history of nicotine dependence
CPT/HCPCS: 70450; 71046; 99284-25

== ENCOUNTER → 2024-04-25 | Outpatient (CLI) | payer OTHER ==
[~2024-04-25] MED LIST changes: +LIDO700A20 TOP
[2024-04-25 10:12] LABS: Source, Urine Clean Catch
[2024-04-25 13:40] LABS: Appearance, Urine Hazy (Clear); Bilirubin, Urine Neg (Neg); Blood, Urine 1+ (Neg); Color, Urine Yellow (P-Yellow); Glucose Qualitative, Urine Neg (Neg); Ketones, Urine Neg (Neg); Leukocyte Esterase, Urine 3+ (Neg); Nitrite, Urine Neg (Neg); Protein, Urine Neg (Neg); Specific Gravity, Urine 1.015 (1.003-1.022); Urobilinogen, Urine NORM (Normal)
[2024-04-25 13:51] LABS: Creatinine, Urine Random 43.3 mg/dL (27.00-270.00); Microalb/Creat Ratio UR, Rand 28.176 mg/g (0.000-30.000); Microalbumin, Random Urine 12.2 mg/L (0.000-20.000)
[2024-04-25 14:14] LABS: Bacteria Many /hpf; Squamous Epithelial Cells Few /hpf (Few)
== END ==
LOC: LAB SHORT 07:30 → LAB 07:30
PROVIDERS: Family Medicine
DX: E11.65 Type 2 diabetes mellitus with hyperglycemia (principal); E11.319 Type 2 diabetes mellitus with unspecified diabetic retinopathy without macular edema; E11.36 Type 2 diabetes mellitus with diabetic cataract; E11.40 Type 2 diabetes mellitus with diabetic neuropathy, unspecified; E11.59 Type 2 diabetes mellitus with other circulatory complications; R32 Unspecified urinary incontinence
CPT/HCPCS: 81001; 82043; 82570; 87077; 87086; 87186

== ENCOUNTER 2024-06-06 15:43 | Observation (INO) | payer MEDICARE ==
[~2024-06-06] VITALS: Ht 167.6 cm; Wt 68.3 kg
[2024-06-06 16:18] LABS: BASOPHILS ABSOLUTE AUTO 0.05 K/mm3 (0.00-0.23); BASOPHILS PERCENT AUTO 1 % (0-2); EOSINOPHILS ABSOLUTE AUTO 0.19 K/mm3 (0.00-0.68); EOSINOPHILS PERCENT AUTO 2 % (0-6); Hematocrit 35.8 % (33.0-51.0); IMMATURE GRAN ABSOLUTE AUTO 0.01 K/mm3 (0.00-0.10); IMMATURE GRAN PERCENT AUTO 0 % (0-1); LYMPHOCYTES ABSOLUTE AUTO 2.72 K/mm3 (0.84-5.20); LYMPHOCYTES PERCENT AUTO 33 % (21-46); MONOCYTES ABSOLUTE AUTO 0.42 K/mm3 (0.16-1.47); MONOCYTES PERCENT AUTO 5 % (4-13); Mean Corpuscular HGB Conc 33.5 g/dL (31.5-36.5); Mean Corpuscular Volume 90 fL (80-100); Mean Platelet Volume 10.4 fL (9.1-12.4); NEUTROPHILS ABSOLUTE AUTO 4.85 K/mm3 (1.96-9.15); NEUTROPHILS PERCENT AUTO 59 % (41-73); Platelet Count 266 K/mm3 (150-400); RDW Coefficient Variation 14.1 % (11.7-14.2); RDW Standard Deviation 46.3 fL (35.1-46.3); White Blood Cell Count 8.24 K/mm3 (4.00-11.30)
[2024-06-06 16:46] LABS: Albumin, Blood 3.6 g/dL (3.4-5.0); Albumin/Globulin Ratio 1.3 (0.8-1.8); Bilirubin, Total 0.5 mg/dL (0.1-1.0); Bun/Creatinine Ratio 20.7 (12.0-20.0); Calcium, Blood 8.6 mg/dL (8.5-10.1); Creatinine, Blood 0.82 mg/dL (0.40-1.00); Globulin, Blood 2.8 g/dL (2.2-4.0); Potassium, Blood 3.8 mmol/L (3.5-5.5); Total Protein, Blood 6.4 g/dL (6.4-8.2)
[2024-06-06] MEDS ORDERED: Nitroglycerin 0.4 MG SUBL SL PRN (17:45)
[2024-06-06] MEDS ORDERED: Nitroglycerin/D5W 250 ML IV SCH (18:00)
[2024-06-06] MEDS ORDERED: Dose Adjust by Pharmacy XX STA (18:15)
[2024-06-06] MEDS ORDERED: LORazepam 2 MG/ML 1ML Injection IV ONE (18:20)
[2024-06-06] MEDS ORDERED: FLU VACC TS2024-25(6MOS UP)/PF 45 MCG/0.5 ML SYRINGE IM ONE (18:20)
[2024-06-06] MEDS ORDERED: NS 1,000 ML IV SCH (18:20)
[2024-06-06] MEDS ORDERED: Ondansetron HCl 2 MG / ML 2ML Vial IV PRN (18:25)
[2024-06-06] MEDS ORDERED: Albuterol 2.5 MG/3 ML VIAL INH PRN (18:35)
[2024-06-06] MEDS ORDERED: Melatonin 3 MG Tab PO PRN (18:40)
[2024-06-06] MEDS ORDERED: Heparin Sodium 5000 Units/ML 1ML MDV IV ONE (18:55)
[2024-06-06] MEDS ORDERED: Heparin Sodium,Porcine/0.5 NS 500 ML IV SCH (19:00)
[2024-06-06] MEDS ORDERED: Morphine Sulfate 4 MG/1 ML Injection IV PRN (19:00)
[2024-06-06] MEDS ORDERED: Mometasone/Formoterol MDI 200/5 mcg 13 GM INH SCH (19:00)
[2024-06-06] MEDS ORDERED: HydrOXYzine Pamoate 25 MG Cap PO PRN (19:00)
[2024-06-06] MEDS ORDERED: Metoprolol Tartrate 25 MG Tab PO SCH (19:00)
[2024-06-06 19:03] LABS: Anti-Xa UFH, PHA Monitoring <0.10 IU/mL; International Normalized Ratio 0.99; Prothrombin Time Results 10.6 Sec (9.7-11.5)
[2024-06-06] MEDS ORDERED: ClonazePAM 1 MG Tab PO SCH (21:00)
[2024-06-06 23:49] VITALS: BP 103/53
[2024-06-07] VITALS (12 sets, daily range): BP systolic 94–139; BP diastolic 55–91
--- NOTE | 2024-06-07 02:42 | NUR ---
ADMIT NOTE FOR 06/06/24 9227 REPORT WAS RECEIVED FROM THE ER. PT WAS BROUGHT DOWN ON THE GURNEY AND TRANSFERRED TO PCU BED 7. PT WAS ORIENTED TO THE ROOM AND THE STAFF. PT ALERT ORIENTED X 4 ABLE TO VERBALIZE NEEDS. NO C/O CHEST PAIN OR PRESSURE. REMAINS ON A HEPARIN DRIP. TROPS ARE 7,11 AND 11. CARDIOLOGY CONSULT WAS CALLED IN TO [facility] AND DR. KIRK WILL BE NOTIFIED IN THE AM. SHES NPO AFTER MIDNIGHT. SHE IS WEAK ON HER LEGS R/T DX OF PARKINSONS. SHE CONTINUES ON A CONTINUOUS PULSE OX. SHES HAVING ANOTHER ANTIXA AT 0300. RESTING IN BED AT THIS TIME WITH CALL LIGHT IN REACH
[2024-06-07 04:00] LABS: BASOPHILS ABSOLUTE AUTO 0.06 K/mm3 (0.00-0.23); BASOPHILS PERCENT AUTO 1 % (0-2); EOSINOPHILS ABSOLUTE AUTO 0.24 K/mm3 (0.00-0.68); EOSINOPHILS PERCENT AUTO 3 % (0-6); Hematocrit 35.5 % (33.0-51.0); Hemoglobin 11.6 g/dL (11.5-16.0); IMMATURE GRAN ABSOLUTE AUTO 0.01 K/mm3 (0.00-0.10); IMMATURE GRAN PERCENT AUTO 0 % (0-1); LYMPHOCYTES ABSOLUTE AUTO 2.57 K/mm3 (0.84-5.20); LYMPHOCYTES PERCENT AUTO 33 % (21-46); MONOCYTES ABSOLUTE AUTO 0.61 K/mm3 (0.16-1.47); MONOCYTES PERCENT AUTO 8 % (4-13); Mean Corpuscular HGB 29.4 pg (26.0-34.0); Mean Corpuscular HGB Conc 32.7 g/dL (31.5-36.5); Mean Corpuscular Volume 90 fL (80-100); Mean Platelet Volume 10.9 fL (9.1-12.4); NEUTROPHILS ABSOLUTE AUTO 4.25 K/mm3 (1.96-9.15); NEUTROPHILS PERCENT AUTO 55 % (41-73); Platelet Count 246 K/mm3 (150-400); RDW Coefficient Variation 14.2 % (11.7-14.2); RDW Standard Deviation 47.2 fL (35.1-46.3); Red Blood Cell Count 3.94 M/mm3 (3.80-5.20); White Blood Cell Count 7.74 K/mm3 (4.00-11.30)
[2024-06-07 04:25] LABS: Albumin, Blood 3.3 g/dL (3.4-5.0); Albumin/Globulin Ratio 1.3 (0.8-1.8); Bilirubin, Total 0.5 mg/dL (0.1-1.0); Bun/Creatinine Ratio 23.3 (12.0-20.0); Calcium, Blood 9.1 mg/dL (8.5-10.1); Creatinine, Blood 0.82 mg/dL (0.40-1.00); Globulin, Blood 2.6 g/dL (2.2-4.0); Potassium, Blood 3.6 mmol/L (3.5-5.5); Total Protein, Blood 5.9 g/dL (6.4-8.2)
[2024-06-07] MEDS ORDERED: Clarify Drug Order XX ONE (05:20)
--- NOTE | 2024-06-07 05:58 | NUR ---
SHIFT SUMMARY PT WAS ADMITTED TO US LAST NIGHT AT 2335 FROM THE ER. PT ALERT ORIENTED ABLE TO VERBALIZE NEEDS. NO C/O CHEST PAIN OR PRESSURE. REMAINS ON THE HEPARIN DRIP AT 15U/KG/HR. HER ANTIXA AT 0300 WAS 0.62 AND PHARMACY STATED TO LEAVE AT THE SAME DOSE. SHE AMBULATES WITH 1 PERSON SBA AND WALKER TO THE BATHROOM. I CALLED IN THE CARDIOLOGY CONSULT TO DR. KIRK ACCESS SERVICES REPRESENTATIVE AND THEY WILL NOTIFY HIM THIS MORNING. HER TROPONINS WERE 7, 11 AND 11. NO C/O PAIN THIS SHIFT. SHE DESATTED DOWN TO 85% WHEN SHE WAS SLEEPING AND REQUIRED 2L OF O2. SHES ON RA WHILE AWAKE. REMAINS ON TELEMETRY AT [facility] AT A RATE OF 70'S TO 80'S. SHES RESTING IN BED AT THIS TIME WITH CALL LIGHT IN REACH
[2024-06-07] MEDS ORDERED: Omeprazole 20 MG CapCR PO SCH ×2 (06:00→21:00)
[2024-06-07] MEDS ORDERED: Aspirin 81 MG Chew PO SCH (09:00)
[2024-06-07] MEDS ORDERED: Pramipexole DI-HCL 1 Mg Tab PO SCH (09:00)
[2024-06-07] MEDS ORDERED: Levodopa/Carbidopa 100 / 25 MG Tab PO SCH (09:00)
[2024-06-07] MEDS ORDERED: Atorvastatin 40 MG Tab PO SCH (09:00)
[2024-06-07] MEDS ORDERED: Dose Adjust by Pharmacy XX STA (10:28)
[2024-06-07] MEDS ORDERED: NS 1,000 ML IV ONE ×2 (10:51→10:54)
[2024-06-07] MEDS ORDERED: Midazolam HCl 1MG / ML 2ML Vial ONE (10:51)
[2024-06-07] MEDS ORDERED: FentaNYL Citrate 50 MCG/ML 2 ML Injection ONE (10:52)
[2024-06-07] MEDS ORDERED: Nitroglycerin 2 MG/20 ML BTL ONE (10:54)
[2024-06-07] MEDS ORDERED: NS 250 ML IV ONE (10:54)
[2024-06-07] MEDS ORDERED: Verapamil HCL 2.5 MG/ML 2ML Injection ONE (10:54)
[2024-06-07] MEDS ORDERED: Heparin Sodium 1000 Units/ML 10ML MDV ONE (10:54)
[2024-06-07] MEDS ORDERED: Tirofiban HCL Monohydrate 3.75 MG/15 ML Vial ONE (11:15)
--- NOTE | 2024-06-07 13:24 | NUR ---
PT BACK FROM ANGIOGRAM WITH LEFT RADIAL ACCESS. THE PT VS HAVE BEEN SET UP TO SEQUENCE AND ARE STABLE. THE PT DENIES ANY ANGINA OR CHEST PRESSURE. BP STABLE. PT REMAINS ON RA W/ SP02 >93%. RIGHT WRIST WITH SMALL HEMATOMA. MENNUAL PRESSURE HELD FOR 15 MINUTES WITH IMPROVEMENT. N/T IN PT'S LEFT THUMB AND POINTER FINGER. 1CC OF AIR REMOVED AND CAP REFILL < 3 SEC NOW AND TINGLING RESOLVED. PT'S SON AT BEDSIDE. SEE NTOES FOR UPDATES.
--- NOTE | 2024-06-07 17:35 | NUR ---
TR BAND FULLY RECOVERED. NO BRUSING OR BLEEDING NOTED. TEGADERM PLACED, C/D/I. SITE WAS CLEANED WITH CHG. PT HAS BEEN ANXIOUS. ANXIETY MEDICATIONS PER EMAR. BP STABLE. ON TELE SHE HAS BEEN PACED OR SR 60'S. BP STABLE. ARM BOARD AND SLING PLACED BECAUSE THE PT IS FORGETFUL ABOTU NOT USING HER LEFT WRIST. SON AT BEDSIDE AND UPDATED ON CARE.
[2024-06-07] MEDS ORDERED: ClonazePAM 1 MG Tab PO SCH (21:00)
--- NOTE | 2024-06-07 23:16 | NUR ---
ASSUMPTION OF CARE ASSUMED PT'S CARE AT 1900.BEDSIDE REPORT COMPLETED.PT SITTING AT THE EDGE OF THE BED.DENIES CHEST PAIN/DISCOMFORT,DENIES GENERALIZED PAIN.LEFT RADIAL SITE ASSESSED,SLING TO LEFT ARM TO REMIND PT TO LIMIT MOVEMENT OF ARM.BED ALARM ACTIVATED SINCE PT IS FORGETFUL.PLAN OF CARE REVIEWED.PT DENIES NEEDS,CALL LIGHT AND PT'S ITEMS WITHIN REACH.WILL CONTINUE TO MONITOR.
[2024-06-08 00:28] VITALS: BP 109/61
[2024-06-08 03:39] VITALS: BP 128/66
[2024-06-08 04:26] LABS: BASOPHILS ABSOLUTE AUTO 0.04 K/mm3 (0.00-0.23); BASOPHILS PERCENT AUTO 1 % (0-2); EOSINOPHILS ABSOLUTE AUTO 0.23 K/mm3 (0.00-0.68); EOSINOPHILS PERCENT AUTO 4 % (0-6); Hematocrit 35.6 % (33.0-51.0); Hemoglobin 11.7 g/dL (11.5-16.0); IMMATURE GRAN ABSOLUTE AUTO 0.01 K/mm3 (0.00-0.10); IMMATURE GRAN PERCENT AUTO 0 % (0-1); LYMPHOCYTES ABSOLUTE AUTO 3.09 K/mm3 (0.84-5.20); LYMPHOCYTES PERCENT AUTO 47 % (21-46); MONOCYTES ABSOLUTE AUTO 0.48 K/mm3 (0.16-1.47); MONOCYTES PERCENT AUTO 7 % (4-13); Mean Corpuscular HGB 29.6 pg (26.0-34.0); Mean Corpuscular HGB Conc 32.9 g/dL (31.5-36.5); Mean Corpuscular Volume 90 fL (80-100); Mean Platelet Volume 10.8 fL (9.1-12.4); NEUTROPHILS ABSOLUTE AUTO 2.75 K/mm3 (1.96-9.15); NEUTROPHILS PERCENT AUTO 42 % (41-73); Platelet Count 234 K/mm3 (150-400); RDW Coefficient Variation 14.5 % (11.7-14.2); RDW Standard Deviation 47.6 fL (35.1-46.3); Red Blood Cell Count 3.95 M/mm3 (3.80-5.20)
--- NOTE | 2024-06-08 06:18 | NUR ---
SHIFT SUMMARY PT SLEPT ON/OFF THROUGHOUT THE NIGHT.WHILE ASLEEP,PT REQUIRED 1.5L OF OXYGEN VIA NC.PT'S OXYGEN SATURATION DROPPED DOWN TO 86% ON RA WHILE SLEEPING.PT CONTINENT OF URINE,ABLE TO VOICE NEEDS BUT DOES NOT REMEMBER TO USE THE CALL LIGHT FOT HELP OUT OF THE BED.BED ALARM USED FOR PT'S SAFETY.LEFT RADIAL SITE DRESSING INTACT,STRONG RADIAL PULSES PALPATED.PT'S LEFT ARM ON A SLING TO REMIND PT TO LIMIT USE OF THE ARM.PT FORGETFUL.PT SITTING AT THE EDGE OF THE BED AT THIS TIME,DENIES PAIN,DENIES NEEDS.CALL LIGHT AND PT'S ITEMS WITHIN REACH.WILL GIVE REPORT TO DAYSHIFT NURSE FOR CONTINUITY OF CARE.
[2024-06-08 07:45] VITALS: BP 131/78
[2024-06-08] MEDS ORDERED: Ranolazine 500 MG ER Tablet PO SCH (09:00)
[2024-06-08 10:34] VITALS: BP 140/67
[2024-06-08] MEDS ORDERED: RANO500T PO (10:55)
[2024-06-08] MEDS ORDERED: Lopressor 25 mg25 MG PO (10:55)
--- NOTE | 2024-06-08 12:25 | NUR ---
PT DISCHARGED AT ABOUT 1320 THE PT REMAINS A&OX4, BUT IS STILL FORGETFUL. DISCHARGE INSTRUCTIONS GONE OVER WITH THE PT AND HER GRANDAUGHTER. ALL BELONGINGS RETURNED TO THE PT. ALL QUESTIONS ANSWERED AT DISCHARGE. MEDICATIONS FAXED TO [facility]. VS STABLE. PT W/O ANY ANGINA OR CHEST PRESSURE. SEE NOTES FOR ANY UPDATES.
== END 2024-06-08 11:15 | disposition home or self-care (01) ==
LOC: ER 15:43 → ERHOLD 19:06 → PCU 19:06
PROVIDERS: Emergency Medicine; Internal Medicine; Nurse Practitioner Acute Care; ADMIT Internal Medicine
DX: R07.89 Other chest pain (principal); J44.9 Chronic obstructive pulmonary disease, unspecified; I25.10 Atherosclerotic heart disease of native coronary artery without angina pectoris; I25.2 Old myocardial infarction; G20.A1 Parkinson's disease without dyskinesia, without mention of fluctuations; E78.5 Hyperlipidemia, unspecified; K21.9 Gastro-esophageal reflux disease without esophagitis; D32.9 Benign neoplasm of meninges, unspecified; G47.33 Obstructive sleep apnea (adult) (pediatric); Z79.82 Long term (current) use of aspirin; Z79.899 Other long term (current) drug therapy; Z88.0 Allergy status to penicillin; Z88.2 Allergy status to sulfonamides; Z88.6 Allergy status to analgesic agent; Z88.1 Allergy status to other antibiotic agents; Z88.8 Allergy status to other drugs, medicaments and biological substances; Z95.0 Presence of cardiac pacemaker; Z87.891 Personal history of nicotine dependence; Z95.5 Presence of coronary angioplasty implant and graft; Z90.49 Acquired absence of other specified parts of digestive tract
CPT/HCPCS: 36415; 71045; 76937; 80053; 84484; 85025; 85520; 85610; 93005; 93010; 93306; 93459; 94640; 94664; 94762; 96374; 96375; 99152; 99153; 99285-25; A9270; C1769; C1894; G0378; J1644; J2060; J2250; J3010; J3246; J7030; J7050; Q0177; Q9967

== ENCOUNTER 2024-08-22 09:04 | Inpatient (IN) | payer MEDICARE ==
[~2024-08-22] VITALS: Ht 167.6 cm; Wt 70.2 kg
[~2024-08-22 09:04] MED LIST changes: -ATOR40TA PO; +LIPITOR80 MG PO; +Lopressor 25 mg25 MG PO; +RANO500T PO
[2024-08-22 10:00] LABS: BASOPHILS ABSOLUTE AUTO 0.04 K/mm3 (0.00-0.23); BASOPHILS PERCENT AUTO 1 % (0-2); EOSINOPHILS ABSOLUTE AUTO 0.03 K/mm3 (0.00-0.68); EOSINOPHILS PERCENT AUTO 0 % (0-6); Hematocrit 33.4 % (33.0-51.0); Hemoglobin 11.2 g/dL (11.5-16.0); IMMATURE GRAN ABSOLUTE AUTO 0.03 K/mm3 (0.00-0.10); IMMATURE GRAN PERCENT AUTO 0 % (0-1); LYMPHOCYTES ABSOLUTE AUTO 1.31 K/mm3 (0.84-5.20); LYMPHOCYTES PERCENT AUTO 19 % (21-46); MONOCYTES PERCENT AUTO 10 % (4-13); Mean Corpuscular HGB 30.9 pg (26.0-34.0); Mean Corpuscular HGB Conc 33.5 g/dL (31.5-36.5); Mean Corpuscular Volume 92 fL (80-100); Mean Platelet Volume 11.1 fL (9.1-12.4); NEUTROPHILS ABSOLUTE AUTO 4.94 K/mm3 (1.96-9.15); NEUTROPHILS PERCENT AUTO 70 % (41-73); Platelet Count 220 K/mm3 (150-400); RDW Coefficient Variation 14.7 % (11.7-14.2); RDW Standard Deviation 49.7 fL (35.1-46.3); Red Blood Cell Count 3.63 M/mm3 (3.80-5.20); White Blood Cell Count 7.05 K/mm3 (4.00-11.30)
[2024-08-22 10:22] LABS: Albumin, Blood 3.5 g/dL (3.4-5.0); Albumin/Globulin Ratio 1.3 (0.8-1.8); Bilirubin, Total 0.7 mg/dL (0.1-1.0); Bun/Creatinine Ratio 24.5 (12.0-20.0); Calcium, Blood 8.3 mg/dL (8.5-10.1); Creatinine, Blood 0.77 mg/dL (0.40-1.00); Globulin, Blood 2.7 g/dL (2.2-4.0); Potassium, Blood 3.6 mmol/L (3.5-5.5); Total Protein, Blood 6.2 g/dL (6.4-8.2)
[2024-08-22] MEDS ORDERED: Aspirin 325 MG Tab PO ONE (11:45)
[2024-08-22] MEDS ORDERED: Nitroglycerin 0.4 MG SUBL SL PRN ×2 (11:45→13:00)
[2024-08-22] MEDS ORDERED: Acetaminophen 500 MG Tab PO ONE (11:45)
[2024-08-22 12:21] LABS: International Normalized Ratio 1.01; Prothrombin Time Results 10.8 Sec (9.7-11.5)
[2024-08-22] MEDS ORDERED: Dose Adjust by Pharmacy XX STA ×2 (12:28→22:09)
[2024-08-22] MEDS ORDERED: Heparin Sodium 5000 Units/ML 1ML MDV IV ONE ×2 (12:30→14:50)
[2024-08-22] MEDS ORDERED: Heparin Sodium,Porcine/0.5 NS 500 ML IV SCH (12:30)
[2024-08-22] MEDS ORDERED: Acetaminophen 325 MG TABLET PO PRN (13:00)
[2024-08-22 15:35] VITALS: BP 142/69
--- NOTE | 2024-08-22 16:13 | NUR ---
Dr. Cooper contacted regarding higher troponin level at 1600. No new orders, requesting cardiology input. Dr. Slaughter consult has been called into cardiology office; waiting for orders from him.
--- NOTE | 2024-08-22 16:35 | NUR ---
ASSUMPTION OF CARE RECEIVED REPORT FROM ER RUBBER GOODS TESTER AT 1300. PATIENT ARRIVED TO UNIT VIA [facility] AROUND 1530. PATIENT ABLE TO TRANSFER FROM [facility] TO HOSPITAL BED WITH MINIMAL ASSISTANCE. VSS, PATIENT DENIES PRESENCE OF CHEST PAIN OR PRESSURE. SPO2 >90% ON RA. TELE IN PLACE, NORMAL SINUS RHYTHM. PATIENT REPORTS PRESENCE OF SWELLING IN LEFT LEG, TENDER ON PALPATION. AWAITING CARDIOLOGY CONSULT. BED IN LOWEST POSITION, CALL LIGHT WITHIN REACH.
[2024-08-22] MEDS ORDERED: ClonazePAM 1 MG Tab PO PRN (16:40)
[2024-08-22] MEDS ORDERED: Mometasone/Formoterol MDI 200/5 mcg 13 GM INH SCH (16:45)
[2024-08-22] MEDS ORDERED: Levodopa/Carbidopa 100 / 25 MG Tab PO SCH (17:00)
--- NOTE | 2024-08-22 18:51 | NUR ---
SHIFT SUMMARY: NO ACUTE CHANGES SINCE ADMISSION. PT WITH COMPLAINTS OF CHEST PAIN/ANXIETY. PT REQUESTING PRN ANXIETY MED, GIVEN PER EMAR. HEPARING REMAINS INFUSING. PLAN FOR ONE DAY STRESS TEST IN AM, NPO AT MIDNIGHT. BED IN LOW, CALL LIGHT IN REACH, WILL REPORT TO ONCOMING RN
--- NOTE | 2024-08-22 19:10 | NUR ---
UPDATE: PT REQUESTING TO BE DNR STATUS. MD NOTIFIED.
--- NOTE | 2024-08-22 19:50 | NUR ---
PT REPORTS WANTING TO BE A DNR, UNABLE TO REACH PROVIDER AT THIS TIME
[2024-08-22 19:51] VITALS: BP 127/84
[2024-08-22] MEDS ORDERED: Pramipexole DI-HCL 1 Mg Tab PO SCH (21:00)
[2024-08-22] MEDS ORDERED: Metoprolol Tartrate 25 MG Tab PO SCH (21:00)
[2024-08-22] MEDS ORDERED: Ranolazine 500 MG ER Tablet PO SCH (21:00)
[2024-08-22] MEDS ORDERED: oxyBUTYnin chloride 5 MG TAB PO SCH (21:00)
[2024-08-22 23:29] VITALS: BP 123/70
--- NOTE | 2024-08-23 00:13 | NUR ---
SHIFT SUMMARY TROPONINS PEAKED AT 6537. HEPARIN GTT CONTINUES. PT NPO AT MIDNIGHT. NO ACUTE CHANGES.
[2024-08-23 03:49] VITALS: BP 113/49
[2024-08-23 04:16] LABS: BASOPHILS ABSOLUTE AUTO 0.03 K/mm3 (0.00-0.23); BASOPHILS PERCENT AUTO 1 % (0-2); EOSINOPHILS ABSOLUTE AUTO 0.05 K/mm3 (0.00-0.68); EOSINOPHILS PERCENT AUTO 1 % (0-6); Hematocrit 34.3 % (33.0-51.0); Hemoglobin 11.1 g/dL (11.5-16.0); IMMATURE GRAN ABSOLUTE AUTO 0.01 K/mm3 (0.00-0.10); IMMATURE GRAN PERCENT AUTO 0 % (0-1); LYMPHOCYTES ABSOLUTE AUTO 1.49 K/mm3 (0.84-5.20); LYMPHOCYTES PERCENT AUTO 29 % (21-46); MONOCYTES ABSOLUTE AUTO 0.56 K/mm3 (0.16-1.47); MONOCYTES PERCENT AUTO 11 % (4-13); Mean Corpuscular HGB 29.8 pg (26.0-34.0); Mean Corpuscular HGB Conc 32.4 g/dL (31.5-36.5); Mean Corpuscular Volume 92 fL (80-100); Mean Platelet Volume 10.9 fL (9.1-12.4); NEUTROPHILS ABSOLUTE AUTO 3.03 K/mm3 (1.96-9.15); NEUTROPHILS PERCENT AUTO 59 % (41-73); Platelet Count 198 K/mm3 (150-400); RDW Coefficient Variation 14.7 % (11.7-14.2); RDW Standard Deviation 49.9 fL (35.1-46.3); Red Blood Cell Count 3.72 M/mm3 (3.80-5.20); White Blood Cell Count 5.17 K/mm3 (4.00-11.30)
[2024-08-23] MEDS ORDERED: Dose Adjust by Pharmacy XX STA (04:36)
[2024-08-23 04:42] LABS: Anion Gap 9 mmol/L (3-11); Blood Urea Nitrogen 19 mg/dL (8-24); Bun/Creatinine Ratio 22.8 (12.0-20.0); CHOL/HDL RATIO 1.8; CO2, Blood 26 mmol/L (21-32); Calcium, Blood 8.4 mg/dL (8.5-10.1); Chloride, Blood 106 mmol/L (98-108); Cholesterol 128 mg/dL (50-200); Creatinine, Blood 0.83 mg/dL (0.40-1.00); Glomerular Filtration Rate 74 (60-); Glucose, Blood 85 mg/dL (70-99); HDL Cholesterol 72 mg/dL (>39); LDL/HDL RATIO 0.6; Low Density Lipoprotein Chol 45 mg/dL (0-110); Potassium, Blood 3.8 mmol/L (3.5-5.5); Sodium, Blood 137 mmol/L (136-145); Triglycerides 56 mg/dL (30-160); Very Low Density Lipoprot Chol 11 mg/dL (6-32)
[2024-08-23] MEDS ORDERED: Omeprazole 20 MG CapCR PO SCH (06:00)
[2024-08-23] MEDS ORDERED: Atorvastatin 40 MG Tab PO SCH (09:00)
[2024-08-23] MEDS ORDERED: Aspirin 81 MG Chew PO SCH (09:00)
[2024-08-23] MEDS ORDERED: Regadenoson 0.4 MG/5 ML SYRINGE ONE (10:32)
[2024-08-23 11:30] VITALS: BP 106/89
[2024-08-23] MEDS ORDERED: Ondansetron HCl 2 MG / ML 2ML Vial IV ONE (11:30)
[2024-08-23] MEDS ORDERED: Loperamide HCl 2 MG Cap PO PRN (13:55)
[2024-08-23 14:21] VITALS: BP 125/64
--- NOTE | 2024-08-23 17:05 | NUR ---
HAD STRESS TEST DONE THIS MORNING. PT WILL BE GOING FOR ANGIO IN THE MORNING. MD WILL BE BY IN THE MORNING TO EXPLAIN PROCEEDURE. PT BATHED AND RESTING BETWEEN BOUTS OF DIARRHEA, IMMODIUM ORDERED AND GIVEN. PT WILL BE NPO AGAIN AT MIDNIGHT.PT SUPER ANXIOUS AND FIDGITY EVEN WITH ANXIOLYTIC GIVEN.
[2024-08-23 19:26] VITALS: BP 122/50
[2024-08-23] MEDS ORDERED: DESVENLAFAXINE 25 MG PO SCH (21:00)
[2024-08-23 22:55] VITALS: BP 128/60
[2024-08-24 03:16] VITALS: BP 110/63
[2024-08-24 03:24] LABS: BASOPHILS ABSOLUTE AUTO 0.02 K/mm3 (0.00-0.23); BASOPHILS PERCENT AUTO 0 % (0-2); EOSINOPHILS ABSOLUTE AUTO 0.06 K/mm3 (0.00-0.68); EOSINOPHILS PERCENT AUTO 1 % (0-6); Hematocrit 34.2 % (33.0-51.0); Hemoglobin 11.4 g/dL (11.5-16.0); IMMATURE GRAN ABSOLUTE AUTO 0.01 K/mm3 (0.00-0.10); IMMATURE GRAN PERCENT AUTO 0 % (0-1); LYMPHOCYTES ABSOLUTE AUTO 1.84 K/mm3 (0.84-5.20); LYMPHOCYTES PERCENT AUTO 36 % (21-46); MONOCYTES ABSOLUTE AUTO 0.49 K/mm3 (0.16-1.47); MONOCYTES PERCENT AUTO 10 % (4-13); Mean Corpuscular HGB 30.1 pg (26.0-34.0); Mean Corpuscular HGB Conc 33.3 g/dL (31.5-36.5); Mean Corpuscular Volume 90 fL (80-100); Mean Platelet Volume 10.7 fL (9.1-12.4); NEUTROPHILS ABSOLUTE AUTO 2.68 K/mm3 (1.96-9.15); NEUTROPHILS PERCENT AUTO 53 % (41-73); Platelet Count 204 K/mm3 (150-400); RDW Coefficient Variation 14.6 % (11.7-14.2); RDW Standard Deviation 48.5 fL (35.1-46.3); Red Blood Cell Count 3.79 M/mm3 (3.80-5.20)
[2024-08-24 03:41] LABS: Bun/Creatinine Ratio 25.3 (12.0-20.0); Calcium, Blood 8.5 mg/dL (8.5-10.1); Creatinine, Blood 0.79 mg/dL (0.40-1.00); Potassium, Blood 3.9 mmol/L (3.5-5.5)
--- NOTE | 2024-08-24 05:02 | NUR ---
SHIFT SUMMARY PT IS A&O X3-4, ALTHOUGH SHE DID HAVE MOMENTS WHERE SHE DID NOT REMEMBER THAT SHE WAS IN THE HOSPITAL. PT CAN BE IMPULSIVE, BED ALARM ON FOR SAFETY. VSS, AFEBRILE, TELE SHOWS A PACED RHYTHM 60S. SHE DENIES SOB, OR CP/ PRESSURE. SPO2 >95% ON RA. SHE HAS BEEN NPO SINCE MIDNIGHT FOR ANGIO PLANNED FOR 08/24/24. HEPARIN GTT INFUSING PER EMAR. CALL LIGHT IS IN REACH, BREATHING IS EVEN AND UNLABORED.
[2024-08-24] MEDS ORDERED: Dose Adjust by Pharmacy XX STA (05:21)
--- NOTE | 2024-08-24 07:23 | NUR ---
THIS RN ASSUMED CARE OF PT AT 0700. PT IS ALERT AND ORIENTED X4, PT WAS WAITING TO HEAR FROM SURGICAL ORDERLY ABOUT NEXT STEPS AND TEST RESULTS. PT HEART RATE IS PACED AT 60, BLOOD PRESSURE STABLE AT 131/63, PT DENIES CHEST PAIN UPON ASSESSMENT. PT IS ON ROOM AIR SATTING >95%, SOUNDS CLEAR, PT DENIES SHORTNESS OF BREATH UPON ASSESSMENT. PT IS ABLE TO VOID PER TOILET AND HAS AN IV IN THE LAC THAT HAS HEPARIN RUNNING AT 15 UNITS/KG/HR. NO OTHER INTERVENTIONS AT THIS TIME. PT HAS AN ANGIO SCHEDULED FOR THIS AM, HAS BEEN NPO SINCE MIDNIGHT. PLAN OF CARE CONTINUED.
[2024-08-24 08:00] VITALS: BP 131/63
[2024-08-24] MEDS ORDERED: Isosorbide Mononitrate 30 MG TABCR PO SCH (09:00)
[2024-08-24] MEDS ORDERED: Clopidogrel Bisulfate 300 MG TABLET PO ONE (09:30)
[2024-08-24] MEDS ORDERED: NS 500 ML IV ONE ×2 (11:25→12:10)
[2024-08-24 12:00] VITALS: BP 84/47
--- NOTE | 2024-08-24 12:56 | NUR ---
PT UPDATE: PT BLOOD PRESSURE IS LOW 70/40s, MAP <65, CALLED, PROVIDER ORDERED 500ML BOLUS, AFTER BOLUS COMPLETED BP STILL REMAINED LOW, NOTIFIED AND ORDERED ANOTHER 500ML BOLUS. WAS ALSO NOTIFIED AND SAID THAT THE NEW MEDICATION STARTED TODAY IS THE REASON FOR LOW BLOOD PRESSURE, WANTED TO CUT DOSE IN HALF FOR TOMORROW AND FLUSH PT OUT. NO OTHER INTERVENTIONS AT THIS TIME. PT REMAINS ASYMPTOMATIC. PLAN OF CARE CONTINUED.
[2024-08-24 16:00] VITALS: BP 105/49
--- NOTE | 2024-08-24 18:07 | NUR ---
PT SUMMARY PT STILL REMAINS TO HAVE LOW BLOOD PRESSURE, IS AWARE AND IS AWARE AND NEW INTERVENTIONS HAVE BEEN TAKEN TO HELP, PROVIDER SAID THAT IS WILL TAKE TIME FOR MEDICATION TO GET OUT OF PT SYSTEM, DOSE CUT IN HALF, PT STILL ASYMPTOMATIC. NO OTHER INTERVENTIONS AT THIS TIME. HEPARIN IS STILL RUNNING. PLAN OF CARE CONTINUED.
[2024-08-24 20:43] VITALS: BP 104/45
[2024-08-24 23:49] VITALS: BP 109/64
--- NOTE | 2024-08-24 23:54 | NUR ---
SHIFT SUMMARY PT A/OX4 THIS SHIFT. BLOOD PRESSURES STABILIZED AT THIS TIME. NO OTHER ACUTE CHANGES.
[2024-08-25 03:01] VITALS: BP 115/82
[2024-08-25 05:13] LABS: Hematocrit 31.7 % (33.0-51.0); Hemoglobin 10.7 g/dL (11.5-16.0); Mean Platelet Volume 11.2 fL (9.1-12.4); Platelet Count 189 K/mm3 (150-400)
[2024-08-25] MEDS ORDERED: Pantoprazole Sodium 40 MG Tab PO SCH (06:00)
[2024-08-25] MEDS ORDERED: Dose Adjust by Pharmacy XX STA (06:20)
[2024-08-25 08:44] VITALS: BP 129/58
[2024-08-25] MEDS ORDERED: Clopidogrel Bisulfate 75 MG Tab PO SCH (09:00)
[2024-08-25] MEDS ORDERED: Isosorbide Mononitrate 30 MG TABCR PO SCH (09:00)
[2024-08-25 09:22] VITALS: BP 120/77
[2024-08-25] MEDS ORDERED: CLOP75 PO (09:43)
[2024-08-25] MEDS ORDERED: ISOSORBIDE MONO PO (09:44)
--- NOTE | 2024-08-25 10:56 | NUR ---
DISCHARGE SUMMARY S/P NSTEMI, A/OX4, VSS, TOLERATING PO, AMBULATING WITH SBA AND HER CANE, BP STABLE AFTER GIVING HALF DOSE OF IMDUR PER EMAR. DISCUSSED DC INSTRUCTIONS WITH HER INCLUDING HOME CARE, MEDICATION CHANGES, AND FOLLOW UP APPOINTMENTS. NO QUESTIONS AT THIS TIME, ESCORTED OUT VIA WC TO PRIVATE AUTO TO GO HOME.
== END 2024-08-25 10:55 | disposition home or self-care (01) | DRG 281 ==
LOC: ER 09:04 → PCU 12:59 → ERHOLD 12:59 → PCU 15:26
PROVIDERS: Student in an Organized Health Care Education/Training Program; ADMIT Family Medicine
PROC: 5A09357 Assistance with Respiratory Ventilation, Less than 24 Consecutive Hours, Continuous Positive Airway Pressure (ICD-10-PCS; principal; 2024-08-22)
DX: I21.4 Non-ST elevation (NSTEMI) myocardial infarction (principal); E87.1 Hypo-osmolality and hyponatremia; I10 Essential (primary) hypertension; I25.10 Atherosclerotic heart disease of native coronary artery without angina pectoris; J44.9 Chronic obstructive pulmonary disease, unspecified; E78.5 Hyperlipidemia, unspecified; K21.9 Gastro-esophageal reflux disease without esophagitis; D64.9 Anemia, unspecified; G47.30 Sleep apnea, unspecified; G20.A1 Parkinson's disease without dyskinesia, without mention of fluctuations; F41.9 Anxiety disorder, unspecified; Z95.1 Presence of aortocoronary bypass graft; Z87.891 Personal history of nicotine dependence; Z95.0 Presence of cardiac pacemaker; Z88.2 Allergy status to sulfonamides; Z88.1 Allergy status to other antibiotic agents; Z88.0 Allergy status to penicillin; Z88.8 Allergy status to other drugs, medicaments and biological substances; Z82.49 Family history of ischemic heart disease and other diseases of the circulatory system; Z90.89 Acquired absence of other organs; Z98.890 Other specified postprocedural states; Z95.5 Presence of coronary angioplasty implant and graft; I25.2 Old myocardial infarction; Z79.82 Long term (current) use of aspirin; Z79.899 Other long term (current) drug therapy; Z90.49 Acquired absence of other specified parts of digestive tract; Z86.79 Personal history of other diseases of the circulatory system
CPT/HCPCS: 36415; 71046; 78452; 80048; 80053; 80061; 82947; 83735; 83880; 84484; 85014; 85018; 85025; 85049; 85520; 85610; 85730; 93005; 93010; 93017; 93308; 93321; 93971; 94640; 94660; 94664; 94760; 94762; A9270; A9500; J1644; J2405; J2785; J7040

== ENCOUNTER 2024-12-24 14:34 | Emergency (ER) | payer MEDICARE, OTHER ==
[~2024-12-24] VITALS: Ht 167.6 cm; Wt 74.4 kg
[~2024-12-24 14:34] MED LIST changes: +CLOP75 PO; +ISOSORBIDE MONO PO
[2024-12-24 15:41] LABS: BASOPHILS ABSOLUTE AUTO 0.04 K/mm3 (0.00-0.23); BASOPHILS PERCENT AUTO 0 % (0-2); EOSINOPHILS ABSOLUTE AUTO 0.14 K/mm3 (0.00-0.68); EOSINOPHILS PERCENT AUTO 1 % (0-6); Hematocrit 38.2 % (33.0-51.0); Hemoglobin 12.7 g/dL (11.5-16.0); IMMATURE GRAN ABSOLUTE AUTO 0.04 K/mm3 (0.00-0.10); IMMATURE GRAN PERCENT AUTO 0 % (0-1); LYMPHOCYTES ABSOLUTE AUTO 2.88 K/mm3 (0.84-5.20); LYMPHOCYTES PERCENT AUTO 30 % (21-46); MONOCYTES ABSOLUTE AUTO 0.79 K/mm3 (0.16-1.47); MONOCYTES PERCENT AUTO 8 % (4-13); Mean Corpuscular HGB Conc 33.2 g/dL (31.5-36.5); Mean Corpuscular Volume 90 fL (80-100); NEUTROPHILS ABSOLUTE AUTO 5.88 K/mm3 (1.96-9.15); NEUTROPHILS PERCENT AUTO 60 % (41-73); NRBC ABSOLUTE 0.00 K/mm3 (0.00-0.02); NRBC Auto 0.0 /100 WBC (0.0-0.2); Platelet Count 283 K/mm3 (150-400); RDW Coefficient Variation 13.7 % (11.7-14.2); RDW Standard Deviation 45.1 fL (35.1-46.3)
[2024-12-24 16:15] LABS: Alanine Aminotransfer (ALT/SGP 13.0 U/L (12-78); Albumin, Blood 3.8 g/dL (3.4-5.0); Albumin/Globulin Ratio 1.2 (0.8-1.8); Anion Gap 9.0 mmol/L (3-11); Aspartate Aminotrans (AST/SGOT 20.0 U/L (12-37); Bilirubin, Total 1.0 mg/dL (0.1-1.0); Blood Urea Nitrogen 22.0 mg/dL (8-24); CO2, Blood 28.0 mmol/L (21-32); Calcium, Blood 8.9 mg/dL (8.5-10.1); Chloride, Blood 102.0 mmol/L (98-108); Creatinine, Blood 0.82 mg/dL (0.40-1.00); Globulin, Blood 3.1 g/dL (2.2-4.0); Glucose, Blood 93.0 mg/dL (70-99); Potassium, Blood 3.4 mmol/L (3.5-5.5); Sodium, Blood 136.0 mmol/L (136-145); Total Protein, Blood 6.9 g/dL (6.4-8.2)
[2024-12-24 16:58] LABS: Influenza A, PCR NEGATIVE (NEGATIVE); Influenza B, PCR NEGATIVE (NEGATIVE); Resp Syncytial Virus, PCR NEGATIVE (NEGATIVE); SARS-Cov-2 (COVID-19) PCR, MMC NEGATIVE (NEGATIVE)
[2024-12-24 21:30] VITALS: BP 122/75
== END 2024-12-24 21:31 | disposition home or self-care (01) ==
LOC: ER 14:34
PROVIDERS: Emergency Medicine; Student in an Organized Health Care Education/Training Program
DX: I25.118 Atherosclerotic heart disease of native coronary artery with other forms of angina pectoris (principal); I10 Essential (primary) hypertension; I25.2 Old myocardial infarction; E78.5 Hyperlipidemia, unspecified; J44.9 Chronic obstructive pulmonary disease, unspecified; G20.A1 Parkinson's disease without dyskinesia, without mention of fluctuations; K21.9 Gastro-esophageal reflux disease without esophagitis; Z95.5 Presence of coronary angioplasty implant and graft; Z95.1 Presence of aortocoronary bypass graft; Z87.891 Personal history of nicotine dependence; Z88.2 Allergy status to sulfonamides; Z88.1 Allergy status to other antibiotic agents; Z88.0 Allergy status to penicillin; Z88.8 Allergy status to other drugs, medicaments and biological substances; Z88.6 Allergy status to analgesic agent; Z79.02 Long term (current) use of antithrombotics/antiplatelets; Z79.899 Other long term (current) drug therapy
CPT/HCPCS: 80053; 84484; 85025; 87637; 93005; 93010; 99285-25